=== PATIENT | female | born 2000 | race African-American/Black ===

== ENCOUNTER 2020-08-02 23:11 | Inpatient (IN) | payer OTHER ==
[2020-08-02] MEDS ORDERED: Dextrose 50% Abboject 50 ML SYRINGE SLOW IVP PRN (23:35)
[2020-08-02] MEDS ORDERED: Dextrose 5% in Water 1,000 ML IV PRN (23:35)
[2020-08-02] MEDS ORDERED: Morphine 2 MG/ML VIAL SLOW IVP PRN (23:35)
[2020-08-02] MEDS ORDERED: Boostrix 0.5 ML (Tdap) VIAL ONE (23:37)
[2020-08-02] MEDS ORDERED: Calcium Chloride 1 GM/10 ML Abboject SYRINGE ONE (23:37)
[2020-08-02] MEDS ORDERED: Sodium Chloride 0.9% 1,000 ML IV SCH (23:45)
[2020-08-02] MEDS ORDERED: traMADol HCl 50 MG TAB PO PRN (23:48)
[2020-08-02] MEDS ORDERED: Ondansetron PF 4 MG/2 ML Vial IVP PRN (23:57)
[2020-08-02] MEDS ORDERED: Ondansetron PF 4 MG/2 ML Vial ONE (23:57)
[2020-08-02] MEDS ORDERED: Morphine 2 MG/ML VIAL ONE (23:57)
[2020-08-03 00:04] LABS: #Lymphocytes 1.3 thou/uL (1.20-3.40); #Monocytes 1.1 thou/uL (0.11-0.59); #Neutrophils 14.2 thou/uL (1.40-6.50); %Basophils 0.1 % (0.0-1.0); %Eosinophils 0.2 % (0.0-10.0); %Lymphocytes 7.7 % (21.0-51.0); %Monocytes 6.8 % (0.0-10.0); %Neutrophils 85.3 % (42.0-75.0); Hemoglobin 11.4 g/dL (12.0-16.0); Mean Corpuscular HGB CONC 32.1 g/dL (32.0-36.0); Mean Corpuscular Hemoglobin 24.1 pg (27.0-31.0); Mean Corpuscular Volume 75.1 fL (78.0-98.0); Mean Platelet Volume 11.1 fL (7.4-10.4); Platelet Count 254 thou/uL (130-400); RBC Distribution Width 15.4 % (11.5-14.5); Red Blood Cell (RBC) Count 4.73 mill/uL (4.20-5.40); White Blood Cell (WBC) Count 16.6 thou/uL (4.8-10.8)
[2020-08-03 00:18] LABS: ALT (SGPT) 22 U/L (8-55); AST (SGOT) 35 U/L (5-34); Albumin 3.6 g/dL (3.5-5.0); Alkaline Phosphatase 107 U/L (40-110); Anion Gap 17 mmol/L (10-20); BUN (Urea Nitrogen) 15 mg/dL (7.0-18.7); Bilirubin, Total 0.6 mg/dL (0.2-1.2); Calc. Creatinine Clearance 0 mL/min (70-130); Calcium 8.1 mg/dL (7.8-10.44); Carbon Dioxide 19 mmol/L (22-29); Chloride 108 mmol/L (98-107); Globulin 2.8 g/dL (2.4-3.5); Glucose 123 mg/dL (70-105); Lipase 10 U/L (8-78); Potassium 4.5 mmol/L (3.5-5.1); Protein, Total 6.4 g/dL (6.0-8.3); Sodium 139 mmol/L (136-145)
[2020-08-03 01:09] VITALS: BMI 44.5
[2020-08-03] MEDS: Acetaminophen 500 MG TAB PO SCH ×5 (01:56→23:06)
[2020-08-03 02:55] LABS: Lactic Acid 2.1 mmol/L (0.5-2.2)
[2020-08-03 05:36] LABS: Hemoglobin 11.1 g/dL (12.0-16.0)
[2020-08-03 05:54] LABS: Phosphorus 2.7 mg/dL (2.3-4.7)
[2020-08-03 05:55] LABS: Anion Gap 17 mmol/L (10-20); BUN (Urea Nitrogen) 16 mg/dL (7.0-18.7); Calc. Creatinine Clearance 153 mL/min (70-130); Calcium 8.6 mg/dL (7.8-10.44); Carbon Dioxide 17 mmol/L (22-29); Chloride 111 mmol/L (98-107); Glucose 129 mg/dL (70-105); Magnesium 1.8 mg/dL (1.6-2.6); Potassium 4.5 mmol/L (3.5-5.1); Sodium 140 mmol/L (136-145)
[2020-08-03] MEDS ORDERED: Lactated Ringer's 500 ML IV SCH (08:00)
[2020-08-03] MEDS ORDERED: Magnesium 2 GM/50 ML 2 GM in Premix Bag 1 BAG IVPB SCH (08:00)
[2020-08-03] MEDS ORDERED: Famotidine/PF 20 mg/2ml Vial SLOW IVP SCH (09:00)
[2020-08-03] MEDS: Lactated Ringer's 1,000 ML IV SCH ×2 (09:02→09:05)
[2020-08-03] MEDS: Polyethylene Glycol 3350 17 GM Packet PO SCH (09:04)
[2020-08-03] MEDS: Senokot S 8.6-50 MG TAB PO SCH ×2 (09:04→20:10)
[2020-08-03] MEDS: Gabapentin 300 MG CAP PO SCH ×2 (11:02→23:07)
[2020-08-03] MEDS: traMADol HCl 50 MG TAB PO PRN (11:03)
[2020-08-03] MEDS: traMADol HCl 50 MG TAB PO SCH ×3 (13:06→23:07)
[2020-08-03] MEDS ORDERED: Gabapentin 300 MG CAP PO SCH (15:00)
[2020-08-03] MEDS: Famotidine 20 MG TAB PO SCH (20:10)
[2020-08-04] MEDS: Lactated Ringer's 1,000 ML IV SCH (00:33)
[2020-08-04] MEDS: Acetaminophen 500 MG TAB PO SCH ×3 (05:46→16:57)
[2020-08-04] MEDS: Gabapentin 300 MG CAP PO SCH ×3 (05:46→21:05)
[2020-08-04] MEDS: traMADol HCl 50 MG TAB PO SCH ×3 (05:47→16:55)
[2020-08-04] MEDS: Senokot S 8.6-50 MG TAB PO SCH (08:35)
[2020-08-04] MEDS: Famotidine 20 MG TAB PO SCH ×2 (08:35→21:04)
[2020-08-04] MEDS: Escitalopram Oxalate 10 mg Tablet PO SCH (08:35)
[2020-08-04] MEDS: traMADol HCl 50 MG TAB PO PRN (08:35)
[2020-08-04] MEDS: Polyethylene Glycol 3350 17 GM Packet PO SCH (08:36)
[2020-08-04 08:38] LABS: Anion Gap 11 mmol/L (10-20); BUN (Urea Nitrogen) 12 mg/dL (7.0-18.7); Calc. Creatinine Clearance 192 mL/min (70-130); Carbon Dioxide 24 mmol/L (22-29); Chloride 108 mmol/L (98-107); Glucose 88 mg/dL (70-105); Potassium 3.9 mmol/L (3.5-5.1); Sodium 139 mmol/L (136-145)
[2020-08-04] MEDS: Ondansetron PF 4 MG/2 ML Vial IVP PRN (13:16)
[2020-08-04] MEDS: Ibuprofen 100 MG/5 ML UDCUP PO SCH ×2 (14:06→21:06)
[2020-08-05] MEDS: Senokot S 8.6-50 MG TAB PO SCH ×3 (02:25→21:34)
[2020-08-05] MEDS: traMADol HCl 50 MG TAB PO SCH ×4 (02:27→21:36)
[2020-08-05] MEDS: Acetaminophen 500 MG TAB PO SCH ×5 (02:27→21:39)
[2020-08-05] MEDS: Ibuprofen 100 MG/5 ML UDCUP PO SCH (06:22)
[2020-08-05] MEDS: Escitalopram Oxalate 10 mg Tablet PO SCH (08:20)
[2020-08-05] MEDS: Famotidine 20 MG TAB PO SCH ×2 (08:20→21:33)
[2020-08-05] MEDS: Gabapentin 300 MG CAP PO SCH (08:20)
[2020-08-05] MEDS: Ibuprofen 200 MG TAB PO SCH ×3 (08:23→21:38)
[2020-08-05] MEDS ORDERED: Enoxaparin Sodium 30 MG/0.3 ML SYRINGE SC SCH (09:00)
[2020-08-05] MEDS: Morphine 2 MG/ML VIAL SLOW IVP PRN ×3 (11:22→16:58)
[2020-08-05] MEDS: Polyethylene Glycol 3350 17 GM Packet PO SCH (15:28)
[2020-08-05 21:14] LABS: #Basophils 0.1 thou/uL (0.0-0.2); #Eosinphils 0.2 thou/uL (0.0-0.7); #Lymphocytes 2.4 thou/uL (1.20-3.40); #Monocytes 0.9 thou/uL (0.11-0.59); #Neutrophils 7.9 thou/uL (1.40-6.50); %Basophils 0.8 % (0.0-1.0); %Eosinophils 1.7 % (0.0-10.0); %Lymphocytes 20.8 % (21.0-51.0); %Monocytes 7.8 % (0.0-10.0); %Neutrophils 68.9 % (42.0-75.0); Hemoglobin 9.3 g/dL (12.0-16.0); Mean Corpuscular HGB CONC 31.9 g/dL (32.0-36.0); Mean Corpuscular Hemoglobin 24.2 pg (27.0-31.0); Mean Corpuscular Volume 75.9 fL (78.0-98.0); Mean Platelet Volume 10.3 fL (7.4-10.4); Platelet Count 215 thou/uL (130-400); Red Blood Cell (RBC) Count 3.85 mill/uL (4.20-5.40); White Blood Cell (WBC) Count 11.4 thou/uL (4.8-10.8)
[2020-08-05] MEDS: Pregabalin 75 MG CAP PO SCH (21:34)
[2020-08-05] MEDS ORDERED: Potassium Chloride 10 MEQ in Dextrose 5 % And 0.9 % NaCl 1,000 ML IV SCH (23:55)
[2020-08-06] MEDS: traMADol HCl 50 MG TAB PO SCH ×4 (01:53→17:21)
[2020-08-06] MEDS: Acetaminophen 500 MG TAB PO SCH ×4 (05:20→20:24)
[2020-08-06] MEDS: Ibuprofen 200 MG TAB PO SCH ×3 (05:23→20:23)
[2020-08-06 05:44] LABS: #Eosinphils 0.2 thou/uL (0.0-0.7); #Lymphocytes 2.4 thou/uL (1.20-3.40); #Monocytes 0.8 thou/uL (0.11-0.59); #Neutrophils 6.4 thou/uL (1.40-6.50); %Basophils 0.1 % (0.0-1.0); %Eosinophils 2.3 % (0.0-10.0); %Lymphocytes 24.5 % (21.0-51.0); %Monocytes 8.2 % (0.0-10.0); %Neutrophils 64.9 % (42.0-75.0); Hemoglobin 9.8 g/dL (12.0-16.0); Mean Corpuscular HGB CONC 32.7 g/dL (32.0-36.0); Mean Corpuscular Hemoglobin 24.7 pg (27.0-31.0); Mean Corpuscular Volume 75.4 fL (78.0-98.0); Mean Platelet Volume 10.6 fL (7.4-10.4); Platelet Count 226 thou/uL (130-400); RBC Distribution Width 15.2 % (11.5-14.5); Red Blood Cell (RBC) Count 3.95 mill/uL (4.20-5.40); White Blood Cell (WBC) Count 9.9 thou/uL (4.8-10.8)
[2020-08-06 06:07] LABS: Anion Gap 12 mmol/L (10-20); BUN (Urea Nitrogen) 13 mg/dL (7.0-18.7); Calc. Creatinine Clearance 184 mL/min (70-130); Calcium 8.3 mg/dL (7.8-10.44); Carbon Dioxide 25 mmol/L (22-29); Chloride 109 mmol/L (98-107); Glucose 105 mg/dL (70-105); Magnesium 1.8 mg/dL (1.6-2.6); Phosphorus 3.8 mg/dL (2.3-4.7); Potassium 3.8 mmol/L (3.5-5.1); Sodium 142 mmol/L (136-145)
[2020-08-06] MEDS: Pregabalin 75 MG CAP PO SCH ×2 (08:12→20:25)
[2020-08-06] MEDS: Morphine 2 MG/ML VIAL SLOW IVP PRN ×2 (08:12→20:26)
[2020-08-06] MEDS: Escitalopram Oxalate 10 mg Tablet PO SCH (08:13)
[2020-08-06] MEDS: Famotidine 20 MG TAB PO SCH (08:13)
[2020-08-06] MEDS ORDERED: Enoxaparin Sodium 30 MG/0.3 ML SYRINGE SC SCH (09:00)
[2020-08-06] MEDS: Potassium Chloride 10 MEQ in Dextrose 5 % And 0.9 % NaCl 1,000 ML IV SCH (11:08)
[2020-08-06] MEDS: Polyethylene Glycol 3350 17 GM Packet PO SCH (11:10)
[2020-08-06] MEDS: Senokot S 8.6-50 MG TAB PO SCH ×2 (11:10→20:23)
[2020-08-06] MEDS ORDERED: traMADol HCl 50 MG TAB ONE (17:25)
[2020-08-06] MEDS: Ascorbic Acid 500 mg Chewable Tablet PO SCH (20:25)
[2020-08-06] MEDS: Enoxaparin Sodium 30 MG/0.3 ML SYRINGE SC SCH (20:26)
[2020-08-07] MEDS: Famotidine 20 MG TAB PO SCH ×3 (02:46→20:44)
[2020-08-07] MEDS: Acetaminophen 500 MG TAB PO SCH ×3 (05:03→18:10)
[2020-08-07] MEDS: Ibuprofen 200 MG TAB PO SCH ×3 (05:04→22:02)
[2020-08-07] MEDS: traMADol HCl 50 MG TAB PO SCH ×4 (05:05→18:11)
[2020-08-07] MEDS: Potassium Chloride 10 MEQ in Dextrose 5 % And 0.9 % NaCl 1,000 ML IV SCH (07:37)
[2020-08-07] MEDS ORDERED: Ferrous Sulfate 325 MG TAB PO SCH (08:00)
[2020-08-07] MEDS: Senokot S 8.6-50 MG TAB PO SCH ×2 (09:23→20:43)
[2020-08-07] MEDS: Pregabalin 75 MG CAP PO SCH ×3 (09:24→20:45)
[2020-08-07] MEDS: Polyethylene Glycol 3350 17 GM Packet PO SCH (09:24)
[2020-08-07] MEDS: Escitalopram Oxalate 10 mg Tablet PO SCH (09:25)
[2020-08-07] MEDS: Ascorbic Acid 500 mg Chewable Tablet PO SCH ×2 (09:25→20:44)
[2020-08-07] MEDS: Enoxaparin Sodium 30 MG/0.3 ML SYRINGE SC SCH ×2 (09:25→20:44)
[2020-08-07] MEDS: Ferrous Sulfate 325 MG TAB PO SCH ×2 (09:25→20:44)
[2020-08-07] MEDS ORDERED: Morphine 2 MG/ML VIAL SLOW IVP PRN ×2 (10:00→13:51)
[2020-08-07] MEDS: Scopolamine 1.5 mg/72 hour Patch TD SCH (14:01)
[2020-08-07] MEDS: Morphine 2 MG/ML VIAL SLOW IVP PRN (20:37)
[2020-08-08] MEDS: Acetaminophen 500 MG TAB PO SCH ×5 (00:05→23:59)
[2020-08-08] MEDS: traMADol HCl 50 MG TAB PO SCH ×5 (00:06→23:59)
[2020-08-08] MEDS: Ibuprofen 200 MG TAB PO SCH ×3 (05:59→21:40)
[2020-08-08] MEDS ORDERED: hydrOXYzine 10 MG TAB PO PRN (08:43)
[2020-08-08] MEDS: Ascorbic Acid 500 mg Chewable Tablet PO SCH ×2 (08:49→21:40)
[2020-08-08] MEDS: Famotidine 20 MG TAB PO SCH ×2 (08:49→21:40)
[2020-08-08] MEDS: Pregabalin 75 MG CAP PO SCH ×3 (08:49→21:40)
[2020-08-08] MEDS: Senokot S 8.6-50 MG TAB PO SCH ×2 (08:49→21:39)
[2020-08-08] MEDS: Ferrous Sulfate 325 MG TAB PO SCH ×2 (08:50→21:40)
[2020-08-08] MEDS: Polyethylene Glycol 3350 17 GM Packet PO SCH (08:50)
[2020-08-08] MEDS: Enoxaparin Sodium 30 MG/0.3 ML SYRINGE SC SCH ×2 (08:50→21:39)
[2020-08-08] MEDS: Escitalopram Oxalate 10 mg Tablet PO SCH (08:50)
[2020-08-08] MEDS: Ondansetron PF 4 MG/2 ML Vial IVP PRN (21:39)
[2020-08-09] MEDS: Ibuprofen 200 MG TAB PO SCH ×3 (05:57→21:06)
[2020-08-09] MEDS: traMADol HCl 50 MG TAB PO SCH ×4 (05:57→22:59)
[2020-08-09] MEDS: Acetaminophen 500 MG TAB PO SCH ×4 (05:58→22:59)
[2020-08-09] MEDS: Ferrous Sulfate 325 MG TAB PO SCH ×2 (08:42→21:06)
[2020-08-09] MEDS: Escitalopram Oxalate 10 mg Tablet PO SCH (08:42)
[2020-08-09] MEDS: Ascorbic Acid 500 mg Chewable Tablet PO SCH ×2 (08:42→21:05)
[2020-08-09] MEDS: Pregabalin 75 MG CAP PO SCH ×3 (08:43→21:05)
[2020-08-09] MEDS: Enoxaparin Sodium 30 MG/0.3 ML SYRINGE SC SCH ×2 (08:43→21:04)
[2020-08-09] MEDS: Famotidine 20 MG TAB PO SCH ×2 (08:43→21:06)
[2020-08-09] MEDS: Senokot S 8.6-50 MG TAB PO SCH ×2 (08:48→21:06)
[2020-08-09] MEDS: Polyethylene Glycol 3350 17 GM Packet PO SCH (08:48)
[2020-08-10] MEDS: Ibuprofen 200 MG TAB PO SCH ×3 (06:05→21:01)
[2020-08-10] MEDS: traMADol HCl 50 MG TAB PO SCH ×4 (06:06→23:08)
[2020-08-10] MEDS: Acetaminophen 500 MG TAB PO SCH ×4 (06:06→23:08)
[2020-08-10] MEDS: Famotidine 20 MG TAB PO SCH ×2 (09:00→21:01)
[2020-08-10] MEDS: Ascorbic Acid 500 mg Chewable Tablet PO SCH ×2 (09:02→21:00)
[2020-08-10] MEDS: Pregabalin 75 MG CAP PO SCH ×3 (09:02→21:01)
[2020-08-10] MEDS: Ferrous Sulfate 325 MG TAB PO SCH ×2 (09:02→21:01)
[2020-08-10] MEDS: Escitalopram Oxalate 10 mg Tablet PO SCH (09:03)
[2020-08-10] MEDS: Enoxaparin Sodium 30 MG/0.3 ML SYRINGE SC SCH ×2 (09:03→21:00)
[2020-08-10] MEDS: Polyethylene Glycol 3350 17 GM Packet PO SCH (09:04)
[2020-08-10] MEDS: Senokot S 8.6-50 MG TAB PO SCH ×2 (09:04→21:06)
[2020-08-10] MEDS: Scopolamine 1.5 mg/72 hour Patch TD SCH (14:21)
[2020-08-11] MEDS: Acetaminophen 500 MG TAB PO SCH ×4 (05:05→23:57)
[2020-08-11] MEDS: Ibuprofen 200 MG TAB PO SCH ×3 (05:05→22:09)
[2020-08-11] MEDS: traMADol HCl 50 MG TAB PO SCH ×4 (05:05→23:58)
[2020-08-11] MEDS: Enoxaparin Sodium 30 MG/0.3 ML SYRINGE SC SCH ×2 (09:36→20:31)
[2020-08-11] MEDS: Escitalopram Oxalate 10 mg Tablet PO SCH (09:36)
[2020-08-11] MEDS: Ascorbic Acid 500 mg Chewable Tablet PO SCH ×2 (09:36→20:30)
[2020-08-11] MEDS: Senokot S 8.6-50 MG TAB PO SCH ×2 (09:37→20:30)
[2020-08-11] MEDS: Famotidine 20 MG TAB PO SCH ×2 (09:37→20:30)
[2020-08-11] MEDS: Ferrous Sulfate 325 MG TAB PO SCH ×2 (09:37→20:30)
[2020-08-11] MEDS: Pregabalin 75 MG CAP PO SCH ×3 (09:38→20:31)
[2020-08-11] MEDS: Polyethylene Glycol 3350 17 GM Packet PO SCH (09:39)
[2020-08-11] MEDS: Cyclobenzaprine 10 MG TAB PO PRN ×2 (13:38→22:09)
[2020-08-12] MEDS: Acetaminophen 500 MG TAB PO SCH ×3 (06:07→17:39)
[2020-08-12] MEDS: Ibuprofen 200 MG TAB PO SCH ×2 (06:08→15:09)
[2020-08-12] MEDS: traMADol HCl 50 MG TAB PO SCH ×3 (06:08→17:39)
[2020-08-12] MEDS: Famotidine 20 MG TAB PO SCH (08:35)
[2020-08-12] MEDS: Senokot S 8.6-50 MG TAB PO SCH (08:35)
[2020-08-12] MEDS: Enoxaparin Sodium 30 MG/0.3 ML SYRINGE SC SCH (08:35)
[2020-08-12] MEDS: Pregabalin 75 MG CAP PO SCH ×2 (08:35→15:09)
[2020-08-12] MEDS: Escitalopram Oxalate 10 mg Tablet PO SCH (08:35)
[2020-08-12] MEDS: Ferrous Sulfate 325 MG TAB PO SCH (08:35)
[2020-08-12] MEDS: Ascorbic Acid 500 mg Chewable Tablet PO SCH (08:35)
[2020-08-12] MEDS: Polyethylene Glycol 3350 17 GM Packet PO SCH (08:36)
[2020-08-12 15:33] VITALS: BP 97/63; TEMP 98
[2020-08-12] MEDS: Cyclobenzaprine 10 MG TAB PO PRN (18:23)
== END 2020-08-12 18:44 | DRG 964 ==
LOC: ERS 23:11 → SURG A 23:35
PROVIDERS: ADMIT Surgery; ATTEND Surgery
PROC: 3E0234Z Introduction of Serum, Toxoid and Vaccine into Muscle, Percutaneous Approach (ICD-10-PCS; principal; 2020-08-02)
DX: S42.002A Fracture of unspecified part of left clavicle, initial encounter for closed fracture (principal); S22.019A Unspecified fracture of first thoracic vertebra, initial encounter for closed fracture; Z23 Encounter for immunization; Z20.822 Contact with and (suspected) exposure to COVID-19; S27.321A Contusion of lung, unilateral, initial encounter; S14.3XXA Injury of brachial plexus, initial encounter; S12.300A Unspecified displaced fracture of fourth cervical vertebra, initial encounter for closed fracture; S12.400A Unspecified displaced fracture of fifth cervical vertebra, initial encounter for closed fracture; S22.32XA Fracture of one rib, left side, initial encounter for closed fracture; S06.0X9A Concussion with loss of consciousness of unspecified duration, initial encounter; F41.9 Anxiety disorder, unspecified; F32.9 Major depressive disorder, single episode, unspecified; F17.210 Nicotine dependence, cigarettes, uncomplicated; S42.102A Fracture of unspecified part of scapula, left shoulder, initial encounter for closed fracture; S00.03XA Contusion of scalp, initial encounter; R33.9 Retention of urine, unspecified; V24.5 Motorcycle passenger injured in collision with heavy transport vehicle or bus in traffic accident
CPT/HCPCS: 12001; 36415; 71045; 80048; 80053; 83605; 83690; 83735; 84100; 85014; 85018; 85025; 90471; 90715; 96374; 96375; G0390; J1650; J2270; J2405; J3475; J3480; J7042; S0028